=== PATIENT | female | born 1955 | race Hispanic/Latino ===

== ENCOUNTER 2022-04-01 15:05 | Outpatient (CLI) | payer MEDICARE ==
[2022-04-01 16:07] LABS: #Eosinphils 0.1 10x3/uL (0.0-0.5); #Monocytes 0.3 10x3/uL (0.0-1.1); %Basophils 0.6 % (0.0-2.0); %Eosinophils 2.2 % (0.0-6.0); %Lymphocytes 16.5 % (18.0-47.0); %Monocytes 5.4 % (0.0-10.0); %Neutrophils 74.9 % (40.0-75.0); Hemoglobin 13.1 g/dL (12.0-15.5); Mean Corpuscular HGB CONC 33.5 g/dL (32.0-36.0); Mean Corpuscular Hemoglobin 32.6 pg (27.0-33.0); Mean Corpuscular Volume 97.3 fl (81.6-98.3); Mean Platelet Volume 9.9 fl (7.4-10.4); Platelet Count 141 10x3/uL (150-450); Red Blood Cell (RBC) Count 4.02 10x6/uL (3.90-5.03); White Blood Cell (WBC) Count 5.4 10x3/uL (3.5-10.5)
[2022-04-01 16:14] LABS: ALT (SGPT) 18 U/L (8-55); AST (SGOT) 26 U/L (5-34); Albumin 4.2 g/dL (3.4-4.8); Alkaline Phosphatase 90 U/L (40-110); Anion Gap 13 mmol/L (10-20); BUN (Urea Nitrogen) 36 mg/dL (9.8-20.1); Bilirubin, Total 0.4 mg/dL (0.2-1.2); Calc. Creatinine Clearance 0 mL/min (70-130); Calcium 9.2 mg/dL (7.8-10.44); Carbon Dioxide 26 mmol/L (23-31); Chloride 108 mmol/L (98-107); Estimated GFR 82; Globulin 2.6 g/dL (2.4-3.5); Glucose 114 mg/dL (80-115); Potassium 4.6 mmol/L (3.5-5.1); Protein, Total 6.8 g/dL (5.8-8.1); Sodium 142 mmol/L (136-145)
== END 2022-04-01 15:06 | disposition home or self-care (01) ==
LOC: LABBT 15:05
DX: Z01.812 Encounter for preprocedural laboratory examination (principal); Z45.010 Encounter for checking and testing of cardiac pacemaker pulse generator [battery]
CPT/HCPCS: 80053; 85025

== ENCOUNTER 2022-04-02 06:00 | Day surgery (SDC) | payer MEDICARE ==
[2022-04-02 07:04] LABS: INR-International Normal Ratio 2.2; PTT 41.3 sec (22.9-36.1)
[2022-04-02] MEDS ORDERED: Lidocaine 1% (PF) 30 ML VIAL ONE (07:20)
[2022-04-02] MEDS ORDERED: Gentamicin 80 MG/2 ML VIAL ONE (07:21)
[2022-04-02] MEDS ORDERED: CEFAZOLIN 2 GM VIAL ONE (07:21)
[2022-04-02] MEDS ORDERED: CEFAZOLIN 1 GM VIAL ONE (07:21)
[2022-04-02] MEDS ORDERED: FENTANYL 50 MCG/ML 1 ML VIAL ONE (08:19)
[2022-04-02] MEDS ORDERED: Midazolam HCl 2 mg/2 ml Vial ONE (08:19)
== END 2022-04-02 11:05 | disposition home or self-care (01) ==
LOC: SDC 06:00
PROVIDERS: ATTEND Internal Medicine Cardiovascular Disease
PROC: 0JPT0PZ Removal of Cardiac Rhythm Related Device from Trunk Subcutaneous Tissue and Fascia, Open Approach (ICD-10-PCS; principal; 2022-04-02)
PROC: 0JH604Z Insertion of Pacemaker, Single Chamber into Chest Subcutaneous Tissue and Fascia, Open Approach (ICD-10-PCS; 2022-04-02)
DX: Z45.010 Encounter for checking and testing of cardiac pacemaker pulse generator [battery] (principal); I48.21 Permanent atrial fibrillation; R00.1 Bradycardia, unspecified; I69.320 Aphasia following cerebral infarction; E11.9 Type 2 diabetes mellitus without complications; Z87.891 Personal history of nicotine dependence; Z79.84 Long term (current) use of oral hypoglycemic drugs; Z79.899 Other long term (current) drug therapy; Z95.2 Presence of prosthetic heart valve
CPT/HCPCS: 33228; 36415; 85610; 85730; 93005; 99152; 99153; J0690; J1580; J2001; J2250; J3010